=== PATIENT | male | born 1990 | race Caucasian/White ===

== ENCOUNTER 2021-10-05 23:12 | Emergency (ER) | payer OTHER ==
[2021-10-05 23:19] VITALS: BP 139/79; PULSE 84; TEMP 99.3; BMI 27.8
== END 2021-10-06 01:21 | disposition home or self-care (01) ==
LOC: JER 23:12
DX: Z48.00 Encounter for change or removal of nonsurgical wound dressing (principal)
CPT/HCPCS: 99281-25